=== PATIENT | male | born 1965 | race Caucasian/White ===

== ENCOUNTER → 2018-04-20 | Day surgery (SDC) | payer OTHER ==
--- NOTE | 2018-04-18 11:45 | History & Physical Pre-Op ---
General Information and HPI History of Present Illness: Niraj is a 53-year-old male with a long-standing and worsening complaint of a painful and enlarging soft tissue mass left foot. The patient has undergone an extended course of conservative care, including shoe gear and activity modification, rest, immobilization and courses of NSAIDs. None of this is yielded him any significant relief. The patient presents today for preoperative surgical consultation. Allergies/Medications Allergies: Coded Allergies: No Known Allergies (04/16/18) Home Med list No Known Home Medications Past History Surgical History Pertinent Surgical History: non-contributory Review of Systems Review of Systems: Unremarkable except for that noted in history of present illness Exam & Diagnostic Data Physical Exam: Lungs clear bilaterally. Heart sounds rate and rhythm regular. Lower extremity physical exam demonstrates intact pedal pulses bilaterally. Both dorsalis pedis and posterior tibial arteries are palpable bilaterally. Patient without any sensory motor deficits. Deep tendon reflexes grossly intact. Patient noted to have significant pain with palpation to a freely mobile and nonpulsatile lesion the left foot. Assessment/Plan Assessment/Plan: Painful and enlarging soft tissue mass left foot. A lengthy discussion reviewing both surgical and conservative options was held the patient at bedside and the patient elected to go forward with surgery despite the risks. As Ranked By This Provider Problem List: 1. Neoplasm of unspecified behavior of bone, soft tissue, and skin Attending MD Review Statement Attending Statement Attending MD Statement: examined this patient
[~2018-04-20] VITALS: Ht 170.2 cm; Wt 83.9 kg
--- NOTE | 2018-04-20 11:26 | Operative Report ---
Operative/Inv Procedure Report Surgery Date: 04/20/18 Name of Procedure: 1 excision of soft tissue lesion left foot 2 closure of open surgical wound local random advancement flap 3 intraoperative administration of ankle block anesthesia Pre-Operative Diagnosis: 1 painful, enlarging soft tissue mass left foot Post-Operative Diagnosis: The same Estimated Blood Loss: scant Surgeon/Food General Manager: Mu Aden DPM Anesthesia: moderate sedation, block Operative/Procedure Note Note: After obtaining informed consent the patient was brought to the operating room and placed on the operating table in the supine position. The patient was then securely fastened to the operating table utilizing safety belt. After administration of IV sedation, 10 mL of 0.5% Marcaine plain was infiltrated about the patient's left ankle. The left foot and ankle within scrubbed, prepped and draped in usual aseptic manner. Well-padded ankle tourniquet was placed about the patient's left lower semi-. 2 g of Ancef were delivered intravenously times one dose. Left lower extremity was elevated to examine to limb, which point the ankle tourniquet was inflated 250 mmHg. Attention directed to the distal lateral second digit, where a mucoid cyst was identified. The ellipse was excised in toto and passed from the operative field. He was sent a specimen for pathologic inspection. The adjacent tissues then undermined , mobilized and advanced towards the open portion the wound. The deep side of the flap was held centrally with 4-0 Vicryl and the skin edges reapproximated 4- 0 nylon. Incision was dressed with Xeroform, 4 x 4's, Kerlix and an Yan wrap. The patient was noted to tolerate both procedure and anesthesia well and the patient was transported from the operating room to recovery by sent stable best assess intact all digits left foot.
== END ==
LOC: STS 01:14
DX: L72.0 Epidermal cyst (principal); M79.672 Pain in left foot
CPT/HCPCS: J0690; J2001; J2250; J3490